=== PATIENT | female | born 1960 | race African-American/Black ===

== ENCOUNTER 2016-05-16 10:58 | Emergency (ER) | payer MEDICAID ==
[~2016-05-16] VITALS: Ht 157.5 cm; Wt 98.0 kg
[2016-05-16] MEDS ORDERED: ACETAMINOPHEN 325MG TABLET PO STA (15:28)
[2016-05-16] MEDS ORDERED: ONDANSETRON 4MG ODT PO STA (15:28)
[2016-05-16 15:43] LABS: BASOPHILS % 0.8 % (0.0-2.0); HEMATOCRIT. 32.9 % (36.0-48.0); HEMOGLOBIN. 10.8 g/dL (12.0-16.0); LYMPHOCYTES % 7.8 % (20.0-50.0); MEAN CORPUSCULAR HGB CONC 32.7 g/dL (31.0-37.0); MEAN CORPUSCULAR VOLUME 85.7 fL (81.0-99.0); MEAN PLATELET VOLUME 10.2 fl (7.4-10.4); NEUTROPHILS % 82.4 % (40.0-76.0); PLATELET 194 x1000/uL (130-400); RED BLOOD CELL COUNT 3.84 mill/uL (4.2-5.4); RED CELL DISTRIBUTION WIDTH 14.7 % (11.6-14.6); WHITE BLOOD COUNT 14.9 x1000/uL (4.5-11.0)
[2016-05-16 15:47] LABS: CHLORIDE 96 mEq/L (98-107); INDEX HEMOLYSI 1 (1-3); INDEX ICTERIC 1 (1-4); INDEX LIPEMIC 1 (1-3)
[2016-05-16 15:53] LABS: CLARITY URINE TURBID (CLEAR); COLOR URINE DARK YELLOW (YELLOW); GLUCOSE URINE NEGATIVE (NEGATIVE); KETONES URINE NEGATIVE (NEGATIVE); LEUKOCYTE ESTERASE URINE 3+ (NEGATIVE); NITRITE URINE NEGATIVE (NEGATIVE); OCCULT BLOOD URINE 2+ (NEGATIVE); PH URINE 5.5 (4.5-8.0); PROTEIN URINE 2+ (NEGATIVE); SPECIFIC GRAVITY URINE 1.014 (1.005-1.030)
[2016-05-16 15:56] LABS: ALANINE AMINOTRANSFERASE 39 IU/L (13-61); ALBUMIN 2.8 g/dL (3.4-5.0); ANION GAP 15; CALCIUM 8.8 mg/dL (8.5-10.1); CARBON DIOXIDE 24 mEq/L (21-32); LIPASE 250 IU/L (73-393); UREA NITROGEN BLOOD 23 mg/dL (7-21); eGFR 47 mL/min (>60)
[2016-05-16 16:06] LABS: WBC URINE TNTC /hpf (0-2)
[2016-05-16 16:07] LABS: BACTERIA URINE 2+; SQUAMOUS EPITHELIAL CELL URINE 2+ /lpf (RARE/1+)
[2016-05-16] MEDS ORDERED: IBUPROFEN 600MG TABLET PO ONE (17:00)
[2016-05-16 18:45] VITALS: BP 121/62
== END 2016-05-16 18:47 | disposition home or self-care (01) ==
LOC: ER 11:00
DX: N39.0 Urinary tract infection, site not specified (principal); R42 Dizziness and giddiness; R19.7 Diarrhea, unspecified; R05 Cough
CPT/HCPCS: 36415; 80053; 81001; 81025; 83690; 85025; 99284; Q0162